=== PATIENT | female | born 1975 | race Caucasian/White ===

== ENCOUNTER → 2023-12-15 | Outpatient (CLI) | payer OTHER ==
--- NOTE | 2023-12-15 09:02 | P.GSCN ---
History of Present Illness Consult date: 12/15/23 Reason for Consult: abnormal left breast mammogram History of present illness: Michaela is a 48-year-old female seen in consultation regarding an abnormal left breast mammogram. She had a bilateral mammogram on 11-29-23 which revealed a 0.6 cm focal asymmetry within the mid medial left breast 5 to 6 cm from the nipple. No lesions of concern were noted in the right breast. Ultrasound was recommended of the left breast. She does not feel any new lumps masses or nodules of concern in either breast. She is not complaining of any trauma or infection in the breast. She has not had any recent nipple discharge or skin changes. She has had a right breast biopsy in the remote past which was benign. Caffeine: occasional nicotine: none chocolate: daily BCP: many years ago less than 1 year hormones: none, has used over the counter plant estrogens Family History: Mother: Breast cancer at 43 Hormonal History: menarche: 10 , breast fed: yes, age at first menopause: periods irregular, every 2 [address] 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 Surgical history: none Medical History: none Social History: nicotine:none alcohol:none drugs:none Review of Systems - Constitutional Reports sweats - EENT Eyes: denies blurred vision Ears: deny: decreased hearing, tinnitus Ears, nose, mouth and throat: Denies dysphagia - Breasts bilateral: as per HPI - Cardiovascular Denies chest pain, Denies shortness of breath - Respiratory Denies cough, Denies 7 - Gastrointestinal Reports as per HPI - Genitourinary Genitourinary: Denies dysuria, Denies hematuria Menstruation: Reports cycle variable - Integumentary Denies rash, Denies unusual bruising - Neurological Denies headaches, Denies syncope - Psychiatric Reports as per HPI - Endocrine Reports as per HPI - Allergic/Immunologic Reports seasonal allergies Past Medical History - Sexual Orientation/Gender Identity What was your sex assigned at ?: Female Preferred Pronoun: She/Her/Hers Surgical - Exam - General no distress - Eyes normal ocular movement - ENT no hearing loss - Neck trachea midline - Respiratory normal respiratory effort, clear to auscultation - Cardiovascular Rhythm: regular Heart Sounds: normal: S1, S2 - Abdomen Abdomen: soft, non tender, no guarding, no rigid, no rebound - Integumentary normal turgor - Neurologic no disoriented, no combative - Musculoskeletal normal gait - Psychiatric oriented to time, oriented to person, oriented to place, speech is normal, memory intact Breast Exam: BRA: 34C Inspection: Bilateral grade 2 ptosis Palpation: Right breast: Slightly larger than left breast, multi positional exam fibrocystic changes no dominant masses or nodules of concern Right axilla: No adenopathy of concern Left breast: Multi positional exam no dominant masses or nodules of concern Left axilla: No adenopathy of concern Results Abnormal left breast mammogram Assessment and Plan Assessment: Impression: Abnormal left breast mammogram Family history of breast cancer Fibrocystic breast changes Perimenopausal Plan: Left breast ultrasound Close surveillance Consider Appointment with Dr. Good urogynaecologist
[2023-12-15 09:27] VITALS: BP 157/89; PULSE 79; RESP 17; TEMP 98.1
--- NOTE | 2023-12-18 12:12 | MM ---
Reason for Exam: Additional evaluation requested from abnormal screening. Last screening mammogram was performed less than 1 month ago. Patient History: Menarche at age 10. First Full-Term at age 23. Last menstrual period: 12/08/2023 Risk Values: Dorene 5 year model risk: 1.1%. NCI Lifetime model risk: 9.9%. Prior Study Comparison: 12/29/2017 Bilateral Screening Mammogram, Unknown. 02/22/2019 Bilateral MG screening mammo w CAD - 2, Unknown. 05/14/2020 Bilateral MG screening mammo w CAD - 2, Unknown. 05/19/2020 Bilateral Screening Mammogram, Unknown. 11/29/2023 Bilateral MG 3D screening mammo w/cad, Unknown. Tissue Density: Left: The breasts are extremely dense, which lowers the sensitivity of mammography. Findings: Analyzed By CAD. No focal abnormality seen. No suspicious calcifications or masses. Precautionary 6 month follow-up advised. Overall Assessment: Probably benign, BI-RAD 3 Management: Diagnostic Mammogram of the left breast in 6 months. . Results were given to the patient verbally at the time of exam. Patient should continue monthly self-breast exams. A clinical breast exam by your physician is recommended on an annual basis. This exam should not preclude additional follow-up of suspicious palpable abnormalities. Note on Dorene scores and lifetime risk: 1. A Dorene score greater than 3% is considered moderate risk. If this is the case, consider specialist referral to assess eligibility for a risk reducing agent. 2. If overall lifetime risk for the development of breast cancer is 20% or higher, the patient may qualify for future screening with alternating mammogram and breast MRI. Electronically signed and approved by: Koko Nation M.D. Radiologis
== END ==
LOC: WWCWWP 08:19
PROVIDERS: ATTEND Surgery
DX: R92.8 Other abnormal and inconclusive findings on diagnostic imaging of breast (principal); N64.89 Other specified disorders of breast; N60.11 Diffuse cystic mastopathy of right breast; Z80.3 Family history of malignant neoplasm of breast; Z78.0 Asymptomatic menopausal state
CPT/HCPCS: 77061; 77065

== ENCOUNTER → 2023-12-15 | Outpatient (CLI) | payer OTHER | END | disposition home or self-care (01) | LOC: RADMAMWWP 09:30 | PROVIDERS: ATTEND Surgery | DX: Z53.9 Procedure and treatment not carried out, unspecified reason (principal) ==

== ENCOUNTER → 2024-06-17 | Outpatient (CLI) | payer OTHER ==
--- NOTE | 2024-06-17 13:41 | MM ---
Reason for Exam: Follow-up at short interval from prior study. Last screening mammogram was performed 7 month(s) ago. Patient History: Menarche at age 10. First Full-Term at age 23. Risk Values: Dorene 5 year model risk: 1.1%. NCI Lifetime model risk: 9.9%. Prior Study Comparison: 05/19/2020 Bilateral Screening Mammogram, Unknown. 11/29/2023 Bilateral MG 3D screening mammo w/cad, Unknown. 12/15/2023 Left MG 3D diag mammo w/cad LT, [facility]. Tissue Density: Left: There are scattered areas of fibroglandular density. Findings: Analyzed By CAD. Area of concern/asymmetry compresses out on spot compression imaging. No suspicious masses, calcifications or distortions. Overall Assessment: Benign, BI-RAD 2 Management: Screening Mammogram of both breasts in 1 year. Results were given to the patient verbally at the time of exam. Patient should continue monthly self-breast exams. A clinical breast exam by your physician is recommended on an annual basis. This exam should not preclude additional follow-up of suspicious palpable abnormalities. Note on Dorene scores and lifetime risk: 1. A Dorene score greater than 3% is considered moderate risk. If this is the case, consider specialist referral to assess eligibility for a risk reducing agent. 2. If overall lifetime risk for the development of breast cancer is 20% or higher, the patient may qualify for future screening with alternating mammogram and breast MRI. [facility], , 06/17/2024 1:38 PM. Electronically signed and approved by: Luis Hurst DO
== END | disposition home or self-care (01) ==
LOC: RADMAMWWP 13:08
PROVIDERS: ATTEND Surgery
CPT/HCPCS: 77061; 77065